=== PATIENT | female | born 1970 | race Caucasian/White ===

== ENCOUNTER 2016-12-03 18:47 | Emergency (ER) | payer BC ==
[2016-12-03 18:59] VITALS: BP 107/77; PULSE 107; RESP 16; TEMP 98.2; O2SAT 100
--- NOTE | 2016-12-03 19:24 | ED PDOC ---
HPI: Pediatric Injury - HPI Time Seen by Provider: 12/03/16 19:10 Chief Complaint (Nursing): Abnormal Skin Integrity Chief Complaint (Provider): laceration History Per: Patient History/Exam Limitations: no limitations Onset/Duration Of Symptoms: Mins (prior to arrival) Additional Complaint(s): Huan Bee is a 46 year old female who presents to the emergency department for an evaluation of a left upper lip laceration sustained while holding own puppy and hitting her mouth with its head. Denied bite involvement. PMD: Past Medical History-Pediatric Reviewed: Historical Data, Nursing Documentation, Vital Signs - Medical History PMH: No Chronic Diseases - Surgical History Surgical History: No Surg Hx - Family History Family History: States: Unknown Family Hx - Allergies Allergies/Adverse Reactions: Allergies Allergy/AdvReac Type Severity Reaction Status Date / Time No Known Allergies Allergy Verified 12/03/16 18:57 Review of Systems ROS Statement: Except As Marked, All Systems Reviewed And Found Negative ENT: Positive for: Other (left upper lip laceration) Physical Exam - Pediatric - Physical Exam Appears: Well ([id number]) Head Exam: ATRAUMATIC, NORMAL INSPECTION, NORMOCEPHALIC Skin: Normal Color Nose: Normal ENT Inspection Throat: No Normal, Other (through and through 2cm left lip laceration crossing krystal) Neck: Normal, No Painless ROM Cardiovascular: Regular Rate, Rhythm, No Chest Non Tender Respiratory: Normal Breath Sounds, No Decreased Breath Sounds, Accessory Muscle Use, No Respiratory Distress Neurological/Psych: Oriented x3, Normal Speech - ECG O2 Sat by Pulse Oximetry: 100 (RA) Pulse Ox Interpretation: Normal Medical Decision Making Medical Decision Making: Initial Impression: Skin laceration Initial Plan: Scribe Attestation: Documented by Cori Ang, acting as a scribe for Lester Guerrero MD. Provider Scribe Attestation: All medical record entries made by the Scribe were at my direction and personally dictated by me. I have reviewed the chart and agree that the record accurately reflects my personal performance of the history, physical exam, medical decision making, and the department course for this patient. I have also personally directed, reviewed, and agree with the discharge instructions and disposition. ROGELION - Discussion Discussion: Disposition - Disposition Forms: [employer] (acquired by [employer] in 2014) ([place])
--- NOTE | 2016-12-03 19:33 | ED PDOC ---
HPI: Skin/Bite Injury Time Seen by Provider: 12/03/16 19:10 Chief Complaint (Nursing): Abnormal Skin Integrity Chief Complaint (Provider): Abnormal Skin Integrity History Per: Patient History/Exam Limitations: no limitations Onset/Duration Of Symptoms: Mins (prior to arrival) Current Symptoms Are (Timing): Still Present Additional Complaint(s): Huan Bee is a 46 year old female who presents to the emergency department for an evaluation of a left upper lip laceration sustained while holding own puppy and hitting her mouth with its head prior to arrival. Denied bite involvement. PMD: none provided Past Medical History Reviewed: Historical Data, Nursing Documentation, Vital Signs Vital Signs: Last Vital Signs Temp 98.2 F 12/03/16 18:57 Pulse 107 H 12/03/16 18:57 Resp 16 12/03/16 18:57 BP 107/77 12/03/16 18:57 Pulse Ox 100 12/03/16 20:33 - Medical History PMH: No Chronic Diseases - Surgical History Surgical History: No Surg Hx - Family History Family History: States: Unknown Family Hx - Home Medications Home Medications: Ambulatory Orders Medication Instructions Recorded Cephalexin [cephalexin] 500 mg PO QID #40 cap 12/03/16 - Allergies Allergies/Adverse Reactions: Allergies Allergy/AdvReac Type Severity Reaction Status Date / Time No Known Allergies Allergy Verified 12/03/16 18:57 Review of Systems ROS Statement: Except As Marked, All Systems Reviewed And Found Negative Skin: Positive for: Other (left upper lip laceration) Physical Exam - Reviewed Nursing Documentation Reviewed: Yes Vital Signs Reviewed: Yes - Physical Exam Appears: Positive for: Well, Non-toxic, No Acute Distress Head Exam: Positive for: ATRAUMATIC, NORMAL INSPECTION, NORMOCEPHALIC ENT: Positive for: Normal ENT Inspection, Other (through and through 2cm irregular left upper lip laceration crossing krystal) Neck: Positive for: Normal, Painless ROM Cardiovascular/Chest: Positive for: Regular Rate, Rhythm. Negative for: Chest Non Tender Respiratory: Positive for: Normal Breath Sounds, Accessory Muscle Use. Negative for: Decreased Breath Sounds, Respiratory Distress Neurologic/Psych: Positive for: Alert, Oriented - ECG O2 Sat by Pulse Oximetry: 100 (RA) Pulse Ox Interpretation: Normal Medical Decision Making Medical Decision Making: Initial Impression: Laceration Initial Plan: * Toradol 30mg IM Time: 1933 --Discussed case with Dr. Webster who will come to patient's bedside within 1 hour for laceration repair. Scribe Attestation: Documented by Cori Ang, acting as a scribe for Lester Guerrero MD. Provider Scribe Attestation: All medical record entries made by the Scribe were at my direction and personally dictated by me. I have reviewed the chart and agree that the record accurately reflects my personal performance of the history, physical exam, medical decision making, and the department course for this patient. I have also personally directed, reviewed, and agree with the discharge instructions and disposition. Disposition - Clinical Impression Clinical Impression: Lip laceration - Patient ED Disposition Is Patient to be Admitted: No Counseled Patient/Family Regarding: Diagnosis, Need For Followup - Disposition Referrals: Nemesio Webster MD [Staff Provider] - Disposition: Routine/Home Disposition Time: 21:34 Condition: FAIR Prescriptions: Cephalexin [cephalexin] 500 mg PO QID #40 cap Instructions: Facial Laceration (ED) Forms: [employer] ([place]ian)
[2016-12-03] MEDS ORDERED: Povidone Iodine Oint 10% Foilpak UD ONE (20:49)
== END 2016-12-03 21:45 | disposition home or self-care (01) ==
LOC: H.ER 18:47
DX: S01.511A Laceration without foreign body of lip, initial encounter (principal); W54.0XXA Bitten by dog, initial encounter; Y92.89 Other specified places as the place of occurrence of the external cause
CPT/HCPCS: 12011; 96372; 99282; J1885